=== PATIENT | female | born 1935 ===

== ENCOUNTER 2017-02-13 10:49 | Inpatient (IN) | payer MEDICARE ==
[2017-02-13 11:16] VITALS: BMI 22.0
--- NOTE | 2017-02-13 11:21 | ED PDOC ---
HPI: General Adult Time Seen by Provider: 02/13/17 11:05 Chief Complaint (Provider): Anemia History Per: Patient History/Exam Limitations: no limitations Onset/Duration Of Symptoms: Days (Today) Additional Complaint(s): Pt. with 6.8 hg when seen by Dr. Hebert today for routine checkup. Pt. denies any chest pain, dyspnea, weakness, headaches, dizziness, bleeding, nausea, vomit , diarrhea, abd pain. No symptoms currently. Sent to the ED for 6.8 hg. Past Medical History Reviewed: Nursing Documentation, Vital Signs Vital Signs: Last Vital Signs Temp 97.1 F L 02/13/17 11:30 Pulse 115 H 02/13/17 11:30 Resp 22 02/13/17 11:30 BP 142/55 L 02/13/17 11:30 Pulse Ox 99 02/13/17 11:30 - Medical History PMH: Anemia, Diabetes - Surgical History Surgical History: No Surg Hx - Family History Family History: States: Unknown Family Hx - Living Arrangements Living Arrangements: With Family - Social History Current smoker - smoking cessation education provided: No Alcohol: None Drugs: Denies - Home Medications Home Medications: Ambulatory Orders Medication Instructions Recorded Aspirin [Ecotrin] 81 mg PO DAILY 02/13/17 Canagliflozin/Metformin HCl 1 tab PO BID 02/13/17 [Invokamet 50-1,000 mg Tablet] Cyanocobalamin [Vitamin B12] 250 mcg PO DAILY 02/13/17 SITagliptin [Januvia] 100 mg PO DAILY 02/13/17 - Allergies Allergies/Adverse Reactions: Allergies Allergy/AdvReac Type Severity Reaction Status Date / Time No Known Allergies Allergy Verified 02/13/17 11:16 Review of Systems ROS Statement: Except As Marked, All Systems Reviewed And Found Negative Physical Exam - Reviewed Nursing Documentation Reviewed: Yes Vital Signs Reviewed: Yes - Physical Exam Appears: Positive for: Non-toxic, No Acute Distress Head Exam: Positive for: ATRAUMATIC, NORMAL INSPECTION, NORMOCEPHALIC Skin: Positive for: Normal Color, Warm, DRY Eye Exam: Positive for: EOMI, Normal appearance, PERRL ENT: Positive for: Normal ENT Inspection Neck: Positive for: Normal, Painless ROM Cardiovascular/Chest: Positive for: Regular Rate, Rhythm Respiratory: Positive for: CNT, Normal Breath Sounds Gastrointestinal/Abdominal: Positive for: Normal Exam, Bowel Sounds, Soft. Negative for: Tenderness Back: Positive for: Normal Inspection. Negative for: L CVA Tenderness, R CVA Tenderness Extremity: Positive for: Normal ROM, Pedal Edema (b/l 1+ nontender). Negative for: Tenderness Neurologic/Psych: Positive for: Alert, machine rough rounder II-XII, Oriented. Negative for: Motor/Sensory Deficits, Facial Droop - Laboratory Results Result Diagrams: 02/13/17 11:23 02/13/17 11:23 Interpretation Of Abn Labs: 12.5 wbc, 6.7 hg, 330 glucose - ECG ECG: Positive for: Interpreted By Me, Viewed By Me ECG Rhythm: Positive for: Sinus Rhythm, Right Bundle Branch Block - Radiology X-Ray: Interpreted by Me, Viewed By Me X-Ray Interpretation: No Acute Disease - Progress ED Course And Treament: 1122: Pt. aknowledges having swelling for 2 weeks in legs. 1322: Spoke with Dr. Hebert. Will admit tele and give further orders when pt. reaches floor. Disposition - Clinical Impression Clinical Impression: Anemia, Hyperglycemia - Patient ED Disposition Is Patient to be Admitted: Yes Counseled Patient/Family Regarding: Studies Performed, Diagnosis - Disposition Disposition Time: 12:54 Condition: FAIR - Pt Status Changed To: Hospital Disposition Of: Inpatient - Admit Certification Admit to Inpatient:: After my assessment, the patient will require hospitalization for at least two midnights. This is because of the severity of symptoms shown, intensity of services needed, and/or the medical risk in this patient being treated as an outpatient. - POA Present On Arrival: Poor Glycemic Control
[2017-02-13 11:43] LABS: BASO # 0.1 K/uL (0.0-0.2); BASO % 0.5 % (0.0-2.0); EOS % 0.2 % (0.0-4.0); HEMOGLOBIN 6.7 g/dL (12.0-16.0); LYMPH # 0.9 K/uL (1.0-4.3); LYMPH % 6.9 % (20.0-40.0); MEAN CELL VOLUME 64.7 fl (81.0-99.0); MEAN CORPUSCULAR HEMOGLOBIN 18.8 pg (27.0-31.0); MONO # 0.9 K/uL (0.0-0.8); NEUT # 10.7 K/uL (1.8-7.0); NEUT % 85.4 % (50.0-75.0); PLATELET COUNT 417 K/uL (130-400); RBC 3.58 Mil/uL (3.80-5.20); RED CELL DISTRIBUTION WIDTH 18.3 % (11.5-14.5); WHITE BLOOD COUNT 12.5 K/uL (4.8-10.8)
[2017-02-13 12:05] LABS: ALBUMIN 3.1 g/dL (3.5-5.0); ALT/SGPT 23 U/L (9-52); AST/SGOT 44 U/L (14-36); BLOOD UREA NITROGEN 10 mg/dl (7-17); CALCIUM 8.5 mg/dL (8.4-10.2); GFR AFRICAN-AMERICAN > 60; GFR NON-AFRICAN AMERICAN > 60; PROTHROMBIN TIME 11.5 Seconds (9.8-13.1)
[2017-02-13 12:18] LABS: B-TYPE NATRIURETIC PEPTIDE 144 pg/ml (0-900)
[2017-02-13 13:21] LABS: ANISOCYTOSIS SLIGHT; EOSINOPHIL 1 % (0-7); LYMPHOCYTE 6 % (20-50); MICROCYTOSIS MARKED; MONOCYTE 3 % (0-10); NEUTROPHIL 90 % (42-75); PLATELET ESTIMATE INCREASED (NORMAL); TOTAL CELLS COUNTED 100
[2017-02-13 13:22] LABS: HYPOCHROMIC MODERATE; OVALOCYTES SLIGHT
[2017-02-13 13:23] LABS: LARGE PLATELETS PRESENT; SCHISTOCYTES SLIGHT; TEARDROP CELLS SLIGHT
--- NOTE | 2017-02-13 15:18 | CP.PCM.HP ---
History of Present Illness - History of Present Illness History of Present Illness: HPI: 81 y/o female with a PMHx remarkable for NIDDM2 presented to ED for evaluation of anemia. Pt was seen at Dr. Hebert's office where it was discovered she has a Hb of 6.8 and Hct of 26.7 and MCV of 74. Upon further history taking, pt reports she has been feeling more fatigued the past several weeks as well as had some increased BOYD on when she climbed the stairs in her house. No other complaints. Reports she had colonoscopy done 4 years ago and it was normal. Denies fever/chills, night sweats, weight loss, headaches, changes in vision, dizziness/lightheadedness, loss of appetite, unintentional weight loss, CP/SOB/ Palpitations, orthopnea, BOYD, N/V/D/C, hematochezia, melena, hematuria, abnormal vaginal spotting/bleeding, bone pain, urinary symptoms, numbness/ tingling. ROS: remaining 12 systems reviewed, found to be negative PMD: Dr. Oh PMHx: NIDDM2, last HbA1C 8.4 (this month) Meds: as per med rec ALL: NKDA PSurgHx: none OBHx: LMP: many years ago, reports they were regular/moderate bleeds, denies current vaginal spotting/bleeding SocialHx: lives in [place] with , denies ETOH/Tobacco/drug abuse FamilyHx: denies hx of cancer, mother passed from stroke in her 80s. PE: Gen: AAOx3, NAD, lying comfortably in bed SKIN: generalzied pallor, no rashes, no jaundice, no ecchymosis HEENT: atraumatic, EMOI, PERRLA, conjuctiva clear, sclera non-icteric, no masses /cervical lympadenopathy, no cartoid bruit CVS: RRR, S1S2+, no MRG, no JVD LUNGS/CHEST: sternum nontender to palpation, CTA B/L, no WRR BACK: vertebra and sacrum nontender EXT: nonpitting pedal edema, pulses 2+ throughout, sensation intact NEURO: CN II-XII grossly intact, strength 4+ throughout all ext, no sensory deficit, gait normal, reflexes normal throughout ED COURSE: Vitals: LABS: Type and Screen CBC: 12.5>6.7/23.2<417, MCV: 64.7 RDW: 18.3 Coags: WNL CMP: WNL Troponin: WNL Pro-BNP: WNL EKG: admitted to [facility] Present on Admission - Present on Admission Any Indicators Present on Admission: No History of DVT/PE: No History of Uncontrolled Diabetes: No Past Patient History - Past Social History Alcohol: None Drugs: Denies - CARDIAC Other/Comment: denies - PULMONARY Other/Comment: denies - HEENT Hx Cataracts: Yes Hx Sinusitis: Yes - ENDOCRINE/METABOLIC Hx Diabetes Mellitus Type 2: Yes - HEMATOLOGICAL/ONCOLOGICAL Hx Anemia: Yes - MUSCULOSKELETAL/RHEUMATOLOGICAL Hx Arthritis: Yes (knee) - PSYCHIATRIC Hx Substance Use: No - SURGICAL HISTORY Hx Cataract Extraction: Yes Meds Allergies/Adverse Reactions: Allergies Allergy/AdvReac Type Severity Reaction Status Date / Time No Known Allergies Allergy Verified 02/13/17 11:16 Results - Vital Signs Recent Vital Signs: Last Vital Signs Temp 98.3 F 02/13/17 14:55 Pulse 93 H 02/13/17 14:55 Resp 24 02/13/17 14:55 BP 144/67 02/13/17 14:55 Pulse Ox 100 02/13/17 14:55 - Labs Result Diagrams: 02/13/17 11:23 02/13/17 11:23 Assessment & Plan (1) Microcytic anemia Assessment and Plan: Unknown Etiology Type and Screen, 3 units blood transfusion f/u CBC post-transfusion Ordered various studies (iron, ferritin, TIBC, etc) in an attempt to find etiology once results available, will guide further investigation Status: Acute (2) Diabetes mellitus type 2, noninsulin dependent Assessment and Plan: HbA1c ordered c/w home meds Status: Chronic (3) DVT prophylaxis Assessment and Plan: SCDs PRN ambulation Status: Chronic
[2017-02-13] MEDS ORDERED: Glucagon Recombinant 1 mg Inj IM PRN (15:20)
[2017-02-13] MEDS ORDERED: Dextrose 50% SYRINGE Inj (50 ml) IV PRN (15:20)
[2017-02-13] MEDS ORDERED: Insulin Regular 100 units/ml SC SCH (16:30)
[2017-02-13 17:20] LABS: % IRON SATURATION 6 % (20-55); IRON 20 ug/dL (37-170); TOTAL IRON BINDING CAPACITY 351 ug/dL (250-450)
[2017-02-13] MEDS: CANAGLIFLOZIN PO SCH (18:00)
[2017-02-13] MEDS: METFORMIN HCL PO SCH (18:00)
[2017-02-14 00:52] VITALS: TEMP 98.4
[2017-02-14 07:40] LABS: HEMOGLOBIN 8.6 g/dL (12.0-16.0); MEAN CELL VOLUME 69.8 fl (81.0-99.0); MEAN CORPUSCULAR HEMOGLOBIN 21.9 pg (27.0-31.0); MEAN CORPUSCULAR HGB CONC 31.4 g/dL (33.0-37.0); RBC 3.94 Mil/uL (3.80-5.20); RED CELL DISTRIBUTION WIDTH 22.3 % (11.5-14.5); WHITE BLOOD COUNT 10.5 K/uL (4.8-10.8)
[2017-02-14 08:18] LABS: GFR AFRICAN-AMERICAN > 60; GFR NON-AFRICAN AMERICAN > 60
[2017-02-14 08:19] LABS: CALCIUM 8.5 mg/dL (8.4-10.2)
[2017-02-14] MEDS: CANAGLIFLOZIN PO SCH (08:36)
[2017-02-14] MEDS: METFORMIN HCL PO SCH (08:36)
[2017-02-14 08:38] VITALS: BP 134/73; PULSE 87; RESP 20; O2SAT 99
[2017-02-14 08:59] LABS: BLOOD UREA NITROGEN 8 mg/dl (7-17)
[2017-02-14] MEDS ORDERED: Pantoprazole 40 mg EC Tab PO SCH (09:00)
--- NOTE | 2017-02-14 10:40 | RAD ---
HISTORY: anemia eval COMPARISON: No prior. FINDINGS: LUNGS: Borderline left basilar atelectasis or infiltrate obscuring left costophrenic sulcus. Remaining lung barajas appear clear. PLEURA: Multi left tonsillar sulcus may reflect element trace atelectasis or pleural effusion. No right pleural effusion. No pneumothorax bilaterally. . CARDIOVASCULAR: Technically magnified or possibly intrinsically enlarged in this portable radiograph. OSSEOUS STRUCTURES: No significant abnormalities. VISUALIZED UPPER ABDOMEN: Normal. OTHER FINDINGS: None. IMPRESSION: Trace left basilar atelectasis infiltrate or pleural effusions is in question with remain lung barajas clear. Limited cardiomegaly is not completely excluded. .
--- NOTE | 2017-02-14 13:50 | CARD ---
APPROVED REPORT EKG Measurement Heart [id number] <Conclusion> Sinus tachycardia Low voltage QRS Incomplete right bundle branch block Borderline ECG
== END 2017-02-14 12:46 | disposition home or self-care (01) | DRG 812 ==
LOC: EDBD 10:49 → H.ER 10:49 → H.ERHOLD 13:16 → H.MEDSURG1 17:24
PROVIDERS: ADMIT Family Medicine; ATTEND Family Medicine
PROC: 30233N1 Transfusion of Nonautologous Red Blood Cells into Peripheral Vein, Percutaneous Approach (ICD-10-PCS; principal; 2017-02-13)
DX: D50.9 Iron deficiency anemia, unspecified (principal); E11.65 Type 2 diabetes mellitus with hyperglycemia